=== PATIENT | male | born 2000 | race Hispanic/Latino ===

== ENCOUNTER 2024-12-24 22:48 | Emergency (ER) | payer BC ==
[~2024-12-24] VITALS: Ht 170.2 cm; Wt 99.3 kg
--- NOTE | 2024-12-24 23:23 | ERN ---
General Chief Complaint: Testicular Injury/Pain Stated Complaint: C/O LEFT TESTICULAR PAIN X 2 DAYS Time Seen by MD: 22:54 Source: patient History of Present Illness Initial Comments Patient is a 24-year-old man coming in complaining of left testicular pain. Patient states that this started a couple of days ago. He states that he does work in a very physical job. He does not report hitting his testicle. He is also concerned because his grandpa of testicular cancer. Allergies: Coded Allergies: No Known Allergies (Unverified Allergy, Unknown, 12/24/24) Past Medical History Past Medical History: No Pertinent History Past Surgical History: None ROS Dictation CONSTITUTIONAL: No chills, no fever, no weakness, no diaphoresis, no malaise. HEAD/FACE: No signs of trauma. EENT: No eye pain, no blurred vision, no tearing, no double vision, no ear pain, no ear discharge, no nose pain, no nasal congestion, no throat pain, no throat swelling, no mouth pain. RESPIRATORY: No cough, no orthopnea, no SOB, no stridor, no wheezing. CARDIOVASCULAR: No chest pain, no edema, no palpitations, no syncope. GASTROINTESTINAL/ABDOMINAL: No abdominal pain, no constipation, no diarrhea, no nausea, no vomiting. GENITOURINARY: No abnormal discharge, no dysuria, no frequent urination, no hematuria. complaints of pain in the genitals. MUSCULOSKELETAL: No back pain, no gout, no joint pain, no joint swelling, no muscle pain, no muscle stiffness, no neck pain. INTEGUMENTARY: No change in color, no change in hair/nails, no dryness, no les ion, no lumps, no rash. NEUROLOGICAL/PSYCH: No anxiety, not depressed, no emotional problem, no headache, no numbness, no pre-existing deficit, no history of seizures, no tremors, no weakness. HEMATOLOGIC/LYMPHATIC: Not anemic, no history of blood clots, no apparent bleeding, no bruising, glands not swollen. All Systems Negative, Except as Noted. Physical Exam Physical Exam Dictation VITAL SIGNS: Reviewed. GENERAL APPEARANCE: Alert, oriented x3, no acute distress, obese. HEAD AND FACE: Non-traumatic. EYES: PERRL, pink conjunctivas, eyelid no trauma, anterior chamber clear. EARS: Pinnas intact and no signs of trauma or erythema. Ear canals clear and no discharge. TMs no erythema. NOSE: No discharge, no bleeding. OROPHARYNX: Mouth normal, teeth no caries, tongue pink. Pharynx clear, no erythema. Tonsils no exudates, no abscesses noted. Mucous membrane moist. NECK: Supple, non-tender, no thyromegaly, no masses, no JVD, no bruits. BREAST: Deferred. CHEST: No tenderness, no crepitus, no paradoxical movement, no retractions. LUNGS: Clear, well-ventilated, symmetric, no rales, no wheezing, no rhonchi, no stridor, good breath sounds bilaterally. HEART: Regular rate, regular rhythm, no murmur, no gallops. VASCULAR: No peripheral edema. ABDOMEN: Soft, positive bowel sounds, nondistended, no guarding, nontender, no rebound, no masses no hepatomegaly, no splenomegaly, no Bowman's sign, no hernias. RECTAL: Deferred. GENITAL: Left testicular pain on palpation NEUROLOGICAL: Normal speech, gross motor function intact, gross sensory function intact. MUSCULOSKELETAL: Neck nontender, full range of motion, back nontender, full range of motion. EXTREMITIES: Nontender, full range of motion. SKIN: Color pink, dry, no turgor, no rash, no lacerations, no abrasions, no contusions. LYMPHATICS: Deferred. Results Laboratory and Microbiology Labs Reviewed?: Yes EKG/XRAY/US/CT/MRI Ultrasound Comment [place] [id number] [place] [id number] IMAGING REPORT Signed PATIENT: LORA SUAREZ MR#: [id number] : 2000 SEX: M AGE: 24 LOCATION: [facility] ORDER STATUS: [facility] REPORT#: [id number] SERVICE [id number] REASON: left tesicular pain ORDERING PHYSICIAN: KYLER WILDE MD PROCEDURE: SCROTUM - US SCROTUM & CONTENTS EXAM: US Scrotum. CLINICAL HISTORY: Left testicular pain. TECHNIQUE: Real-time ultrasound of the scrotum with color Doppler and image documentation. COMPARISON: None provided. FINDINGS: RIGHT TESTICLE: The right testicle measures 4.8 x 2.6 x 2.5 cm. Normal in size and echogenicity, no abnormal mass. Normal Doppler flow. LEFT TESTICLE: The left testicle measures 4.7 x 2.7 x 2.5 cm. Normal in size and echogenicity, no abnormal mass. Normal Doppler flow. EPIDIDYMIDES: The right epididymis head measures 9 mm. The left epididymis head measures 10 mm. Normal limits in size and vascularity SCROTUM: Unremarkable. No hydrocele, varicocele, or extratesticular mass seen. IMPRESSION: Negative examination. No acute process or testicular torsion is evident. /[place] DICTATED BY: LAUREN DEL ANGEL Jr., MD DATE: 12/25/24112 ELECTRONICALLY SIGNED BY: LAUREN DEL ANGEL Jr., MD DATE: 12/25/24112 [facility] MDM: Differential diagnosis: Testicular pain, varicocele, hydrocele, torsion, Rationale: Tests considered and ordered secondary to shared decision making include: Previous outside records reviewed: Old ER visits. Risk of complication and/or morbidity or mortality of patient management: None Medications-Per medication reconciliation Need for hospitalization: Patient does not meet criteria for hospitalization. Need for emergency major/minor surgery: No Patient is a 24-year-old male coming in complaining of left testicular pain. On physical exam that has tenderness to palpation no erythema no swelling. Ultrasound did not confirm any findings. I did advised him appropriate follow up with PCP for long-term management. Medication will be provided for symptomatic relief. ED Course Orders Procedure Category Date Status Time Us Scrotum & Contents US 12/24/24 Resulted 22:59 Vital Signs Date Time Temp Pulse Resp B/P (MAP) Pulse Ox O2 Delivery O2 Flow Rate FiO2 12/24/24 23:06 96.8 68 18 108/51 98 Room Air* 0 21 12/24/24 22:50 96.1 59 20 109/51 98 Room Air DX & DISP Disposition: Discharge Departure Impression: Primary Impression: Testicular pain, left Condition: Stable Scripts Naproxen (Naproxen) 375 Mg Tablet. 375 MG PO BID for 7 Days, #14 TAB Prov: KYLER WILDE MD 12/25/24 Additional Instructions: FOLLOW-UP WITH PRIMARY CARE PROVIDER IN 1 TO 2 DAYS. TAKE MEDICATIONS DIRECTED HERE IN THE EMERGENCY ROOM. OKAY TO CONTINUE HOME MEDICATIONS UNLESS OTHERWISE DISCUSSED DURING YOUR VISIT IN THE EMERGENCY ROOM TODAY. RETURN TO YOUR NEAREST EMERGENCY ROOM IF SYMPTOMS WORSEN OR IF THERE IS NO IMPROVEMENT. CALL 911 IF YOU NEED IMMEDIATE ASSISTANCE. TAKE TYLENOL [id number] NEEDED AND IF NO CONTRAINDICATIONS ARE PRESENT. INCREASE ORAL HYDRATION. A WOUND CULTURE OR URINE CULTURE WAS ORDERED HERE IN THE EMERGENCY ROOM DEPARTMENT PLEASE FOLLOW-UP WITH PRIMARY CARE PROVIDER AND ADVISE THEM TO GET REPORTS FROM OUR FACILITY. IF YOU HAD ANY RASHMI WRAP/SPLINTS THAT WERE APPLIED HERE, PLEASE DO NOT REMOVE THEM UNTIL YOU SEE YOUR PRIMARY CARE OR SPECIALTY. Referrals: Referrals: NONE (PCP) MAAME HOLM MD, LUIS A MD Time of Disposition: 00:18 KYLER WILDE MD Dec 24, 2024 23:23
--- NOTE | 2024-12-25 00:14 | HMCIMG ---
EXAM: US Scrotum. CLINICAL HISTORY: Left testicular pain. TECHNIQUE: Real-time ultrasound of the scrotum with color Doppler and image documentation. COMPARISON: None provided. FINDINGS: RIGHT TESTICLE: The right testicle measures 4.8 x 2.6 x 2.5 cm. Normal in size and echogenicity, no abnormal mass. Normal Doppler flow. LEFT TESTICLE: The left testicle measures 4.7 x 2.7 x 2.5 cm. Normal in size and echogenicity, no abnormal mass. Normal Doppler flow. EPIDIDYMIDES: The right epididymis head measures 9 mm. The left epididymis head measures 10 mm. Normal limits in size and vascularity SCROTUM: Unremarkable. No hydrocele, varicocele, or extratesticular mass seen. IMPRESSION: Negative examination. No acute process or testicular torsion is evident. /[place]
[2024-12-25] MEDS ORDERED: NAPR-1505 PO (00:20)
[2024-12-25 00:21] VITALS: BP 112/62; PULSE 72; RESP 20; TEMP 97; O2SAT 99
== END 2024-12-25 00:36 | disposition home or self-care (01) ==
LOC: EDH 22:48
DX: N50.812 Left testicular pain (principal)
CPT/HCPCS: 99284; 76870; 96372; J1885